=== PATIENT | female | born 1960 | race African-American/Black ===

== ENCOUNTER → 2017-04-22 | Outpatient (CLI) | payer MEDICARE ==
[~2017-04-22] MED LIST: ADVAIR 250-501 EACH PO; ADVAIR 2501 DISK W/D PO; ALBUTEROL17 GM INH; ALBUTEROL17 GM NEB; ALDACTONE PO; ALDACTONE25 MG PO; ANTIVERT PO; ASPIRIN PO; ASPIRIN81 M1 PO; BACTRIM DS TABL1 TAB PO; CARVEDILOL12.5 MG PO; CARVEDILOL25 MG PO; COMBIVENT INH14.7 GM INH; COMBIVENT14.7 GM PO; FIORICET 50-321 EACH PO; FLEXERIL PO; KCL PO; LASIX PO; LASIX20 MG PO; LEVAQUIN PO; LISINOPRIL PO; LISINOPRIL5 MG PO; PHENERGAN W/CO120 ML PO; POTASSIUM CL 225 ME1 PO; PREDNISONE PO; PREDNISONE10 MG PO; PREDNISONE10 MG/DOSE PO; PRILOSEC20 MG PO; ROBITUSSIN A-C-S1 ML PO; VICODIN PO; VOLTAREN75 MG PO; ZITHROMAX PO; ZOFRAN ODT4 MG PO
--- NOTE | ~2017-04-22 | MY29 ---
[facility] A Service of [facility] RADIOLOGY TEXT RESULTS PATIENT: JOSSUE MCFARLAND LOCATION: [facility] : 56 UNIT #: [id number] AGE: [address]: Herberth Brunner MD SEX: F ORDER DR: [id number] [facility] [address] [place], [place] [address] [id number] O MR#: [id number] Acc #: [id number] NAME: JOSSUE MCFARLAND : 1960 SEX: F STUDY DATE/TIME: 04/22/2017 9:03 UNIT: [facility] ROOM: STUDY DESCRIPTION: MY BEN SCREENING W/ CAD BILAT Attending Physician: Herberth Brunner M.D. Referring Physician: Herberth Brunner M.D. Ordering Physician: Herberth Brunner M.D. Primary Care Physician: Herberth Brunner M.D. MEDICAL IMAGING REPORT This report is preliminary unless electronic signature is present EXAM Digital screening mammograms 04/22/2017 HISTORY 56-year-old woman. No risk elevation. Annual screen. COMPARISON 01/24/2008, 08/14/2010, 05/02/2012, 03/15/2014, 11/28/2015 with followup diagnostic right breast imaging 01/31/2016. FINDINGS Digital imaging of each breast was completed utilizing a two-view examination of each breast in craniocaudal and mediolateral-oblique projections. Review and interpretation of digital mammograms include a second review in conjunction with FDA-approved CAD device. There is a normal parenchymal presentation bilaterally consistent with the patient's age. There are no breast masses imaged and no parenchymal asymmetry is visualized. There are no suspicious microcalcifications and I see no focal architectural disturbance. IMPRESSION Negative screening digital mammogram. One-year followup recommended. Patients over the age of 40 are entered into a reminder system with target due date for the next mammogram. A result letter will also be sent to the patient. BIRADS: 1 Negative Dictated by... Tye Traore M.D. [facility] A Service of [facility] RADIOLOGY TEXT RESULTS PATIENT: JOSSUE MCFARLAND LOCATION: [facility] : 56 UNIT #: [id number] AGE: [address]: Herberth Brunner MD SEX: F ORDER DR: THIS IS AN ELECTRONICALLY VERIFIED REPORT Tye Traore M.D. at 04/22/2017 1:41 PM Ursula TD: 04/22/2017 13:10 JOB #: [id number] MEDICAL IMAGING REPORT Page 1 of 1 COPY
== END | disposition home or self-care (01) ==
LOC: CWCC 08:46
DX: Z12.31 Encounter for screening mammogram for malignant neoplasm of breast (principal)
CPT/HCPCS: G0202